=== PATIENT | male | born 1940 | race Caucasian/White ===

== ENCOUNTER 2018-03-04 10:24 | Emergency (ER) | payer MEDICARE, BC ==
[~2018-03-04] VITALS: Ht 175.3 cm; Wt 71.5 kg
[~2018-03-04 10:24] MED LIST: ASPI81 PO; ATOR40TA49 PO; CLAR5TAB PO; PERC5TAB12 PO; PROT40TA PO; TAMS0.4C67 PO; VERA240CR PO
[2018-03-04 10:26] VITALS: BP 143/68; PULSE 83; RESP 16; TEMP 98.1; O2SAT 95
[2018-03-04 11:18] VITALS: BP 117/72; PULSE 79; RESP 16; O2SAT 100
--- NOTE | 2018-03-04 11:19 | PD ---
HPI Chief Complaint: GI Complaint Time Seen by Provider: 11:02 Travel History International Travel<30 days: No Contact w/Intl Traveler<30days: No Traveled to known affect area: No History of Present Illness HPI 77-year-old male complains of abdominal bloating abdominal pain and nausea vomiting. Patient has history of esophageal stricture that required dilatation procedure in the past. Patient has been seen by Dr. Weaver. Patient started having abdominal bloating and epigastric abdominal discomfort for the past 3 days. Patient states that the symptom has been intermittent but more persistent since this morning. Patient states that he vomited this morning. Patient states that he felt much better after he vomited. Patient states that abdominal bloating and aching pain localized throughout the epigastric area and periumbilical area. Patient denies any pain radiation. Patient denies any palpitation nausea diaphoresis. Patient denies any chest pain or shortness of breath. Patient denies any diarrhea. Patient states that he has been constipated. Patient denies history hypertension, diabetes. Patient has history of hyperlipidemia. Patient is a non-smoker. Patient denies family history of heart disease. Patient has a history of CAD status post stent placement, pacer placement and on aspirin daily. PFSH Past Medical History Hx Anticoagulant Therapy: Yes (ASPIRIN) Blood Disorders: No Heart Rhythm Problems: Yes Cancer: No Cardiovascular Problems: Yes (STENT, PACER, LEFT BUNDLE BRANCH BLOCK) High Cholesterol: Yes Coronary Artery Disease: Yes Endocrine: No GERD: Yes Genitourinary: Yes (PROSTATE ENLARGEMENT) Hypertension: Yes Immune Disorder: No Musculoskeletal: No Neurologic: No Psychiatric: No Reproductive: No Respiratory: No Past Surgical History Body Medical Devices: Pacemaker, stent Cardiac Surgery: Yes (Pacemaker) Coronary Stent: Yes Other Surgery: Yes (SKIN CA 2000) Social History Alcohol Use: Yes (Socially) Tobacco Use: No Substance Use: No Allergies-Medications (Allergen,Severity, Reaction): Coded Allergies: No Known Allergies (Verified Adverse Reaction, Unknown, 03/04/18) Reported Meds & Prescriptions Reported Meds & Active Scripts Active Reported Clarinex (Desloratadine) 5 Mg Tab 5 Mg PO DAILY Flomax (Tamsulosin HCl) 0.4 Mg Cap 0.4 Mg PO HS Lipitor (Atorvastatin Calcium) 40 Mg Tab 40 Mg PO HS Verapamil ER 24 HR (Verapamil HCl) 240 Mg Tab 240 Mg PO HS Pantoprazole (Pantoprazole Sodium) 40 Mg Tab 40 Mg PO DAILY Aspirin EC (Aspirin) 81 Mg Tabdr 162 Mg PO DAILY Review of Systems General / Constitutional: No: Fever Eyes: No: Visual changes HENT: No: Headaches Cardiovascular: No: Chest Pain or Discomfort Respiratory: No: Shortness of Breath Gastrointestinal: Positive: Nausea, Vomiting, Abdominal Pain Genitourinary: No: Dysuria Musculoskeletal: No: Pain Skin: No Rash Neurologic: No: Weakness Psychiatric: No: Depression Endocrine: No: Polydipsia Hematologic/Lymphatic: No: Easy Bruising Physical Exam Narrative GENERAL: Well-nourished, well-developed patient. SKIN: Focused skin assessment warm/dry. HEAD: Normocephalic. EYES: No scleral icterus. No injection or drainage. NECK: Supple, trachea midline. No JVD or lymphadenopathy. CARDIOVASCULAR: Regular rate and rhythm without murmurs, gallops, or rubs. RESPIRATORY: Breath sounds equal bilaterally. No accessory muscle use. GASTROINTESTINAL: Abdomen soft, nondistended. Patient has mild tenderness in palpation epigastric and periumbilical area of the abdomen. No rebound tenderness. No mass. MUSCULOSKELETAL: No cyanosis, or edema. BACK: Nontender without obvious deformity. No CVA tenderness. Neurologic exam normal. Data Data Last Documented VS Vital Signs Date Time Temp Pulse Resp B/P (MAP) Pulse Ox O2 Delivery O2 Flow Rate FiO2 03/04/18 11:18 16 100 Room Air 03/04/18 11:18 79 117/72 (87) 03/04/18 10:26 98.1 Orders Orders Electrocardiogram (03/04/18 11:13) Complete Blood Count With Diff (03/04/18 11:13) Comprehensive Metabolic Panel (03/04/18 11:13) Creatine Kinase (Cpk) (03/04/18 11:13) Troponin I (03/04/18 11:13) Prothrombin Time / Inr (Pt) (03/04/18 11:13) Act Partial Throm Time (Ptt) (03/04/18 11:13) Lipase (03/04/18 11:13) Urinalysis - C+S If Indicated (03/04/18 11:13) Chest, Single Ap (03/04/18 11:13) Ct Abd/Pel W Iv Contrast(Rout) (03/04/18 11:13) Iv Access Insert/Monitor (03/04/18 11:13) Ecg Monitoring (03/04/18 11:13) Oximetry (03/04/18 11:13) Sodium Chlor 0.9% 1000 Ml Inj (Ns 1000 M (03/04/18 11:45) Ondansetron Odt (Zofran Odt) (03/04/18 11:45) Iohexol 350 Inj (Omnipaque 350 Inj) (03/04/18 12:31) Labs Laboratory Tests Test 03/04/18 11:30 White Blood Count 9.9 TH/MM3 Red Blood Count 5.01 MIL/MM3 Hemoglobin 15.7 GM/DL Hematocrit 45.3 % Mean Corpuscular Volume 90.4 FL Mean Corpuscular Hemoglobin 31.4 PG Mean Corpuscular Hemoglobin Concent 34.7 % Red Cell Distribution Width 12.8 % Platelet Count 254 TH/MM3 Mean Platelet Volume 7.4 FL Neutrophils (%) (Auto) 79.3 % Lymphocytes (%) (Auto) 6.3 % Monocytes (%) (Auto) 12.8 % Eosinophils (%) (Auto) 1.5 % Basophils (%) (Auto) 0.1 % Neutrophils # (Auto) 7.9 TH/MM3 Lymphocytes # (Auto) 0.6 TH/MM3 Monocytes # (Auto) 1.3 TH/MM3 Eosinophils # (Auto) 0.1 TH/MM3 Basophils # (Auto) 0.0 TH/MM3 CBC Comment DIFF FINAL Differential Comment Prothrombin Time 10.7 SEC Prothromb Time International Ratio 1.1 RATIO Activated Partial Thromboplast Time 26.2 SEC Blood Urea Nitrogen 18 MG/DL Creatinine 0.88 MG/DL Random Glucose 106 MG/DL Total Protein 7.4 GM/DL Albumin 3.5 GM/DL Calcium Level 9.1 MG/DL Alkaline Phosphatase 86 U/L Aspartate Amino Transf (AST/SGOT) 17 U/L Alanine Aminotransferase (ALT/SGPT) 23 U/L Total Bilirubin 1.2 MG/DL Sodium Level 138 MEQ/L Potassium Level 3.9 MEQ/L Chloride Level 104 MEQ/L Carbon Dioxide Level 26.9 MEQ/L Anion Gap 7 MEQ/L Estimat Glomerular Filtration Rate 84 ML/MIN Total Creatine Kinase 35 U/L Troponin I LESS THAN 0.02 NG/ML Lipase 92 U/L MDM Medical Decision Making Medical Screen Exam Complete: Yes Emergency Medical Condition: Yes Interpretation(s) Last Impressions Chest X-Ray 03/04/18 1113 Signed Impressions: CONCLUSION: Minimal prominence of interstitium which may be secondary to underlying chronic interstitial change. This appears unchanged. Abdomen/Pelvis CT 03/04/18 1113 Signed Impressions: CONCLUSION: 1. The proximal small bowel is prominent, the mucosa appearing prominent. This is nonspecific. Enteritis could have this appearance. 2. Mild hiatal hernia. Stomach appears thickened but this may be secondary to lack of distention. 3. The stomach and proximal small bowel can be directly inspected with endosco py. 4. Colonic diverticula particularly in the sigmoid region. 5. Enlargement of the prostate. 6. Hepatic steatosis. 1326 PM. CBC within normal limits. WBC 9.9. 79 neutrophil. CMP within normal limits. Cardiac enzymes are normal. Differential Diagnosis Differential diagnosis including gastritis, PUD, pancreatitis, cholecystitis, colitis, UTI, pyelonephritis, nephrolithiasis, angina, [place], PE, pneumothorax. Narrative Course 77-year-old male with abdominal pain abdominal bloating and nausea vomiting. Normal saline solution 1 25 cc an hour. Zofran 4 mg ODT. Diagnosis Primary Impression: Gastroenteritis Patient Instructions: General Instructions Additional Instructions: Clear fluid today and advance diet as tolerated. Zofran as needed for nausea vomiting. Follow-up with personal physician. Return if persistent problem or worse. Med/Other Pt SpecificInfo: Prescription(s) given Scripts Ondansetron Odt (Zofran Odt) 4 Mg Tab 4 MG SL Q6HR Y for Nausea/Vomiting, #10 TAB 0 Refills Prov: Juan Awad MD 03/04/18 Disposition: 01 DISCHARGE HOME Condition: Stable Juan Awad MD Mar 04, 2018 11:19
[2018-03-04] MEDS ORDERED: TAMS5CAP PO (11:21)
[2018-03-04] MEDS ORDERED: PANT40TA3 PO (11:21)
[2018-03-04] MEDS ORDERED: CLAR5TAB PO (11:21)
[2018-03-04] MEDS ORDERED: VERA1TAB17 PO (11:21)
[2018-03-04] MEDS ORDERED: ASPI81TA23 PO (11:21)
[2018-03-04] MEDS ORDERED: LIPI40TA PO (11:21)
[2018-03-04 11:44] LABS: AUTOMATED NEUTROPHIL # 7.9 TH/MM3 (1.8-7.7); BASOPHIL % 0.1 % (0.0-2.0); EOSINOPHIL # 0.1 TH/MM3 (0-0.4); EOSINOPHIL % 1.5 % (0.0-4.0); HEMATOCRIT 45.3 % (39.0-51.0); HEMOGLOBIN 15.7 GM/DL (13.0-17.0); LYMPH % 6.3 % (9.0-44.0); LYMPHOCYTE # 0.6 TH/MM3 (1.0-4.8); MEAN CELL VOLUME 90.4 FL (80.0-100.0); MEAN CORPUSCULAR HEMOGLOBIN 31.4 PG (27.0-34.0); MEAN CORPUSCULAR HGB CONC 34.7 % (32.0-36.0); MEAN PLATELET VOLUME 7.4 FL (7.0-11.0); MONO % 12.8 % (0.0-8.0); MONOCYTE # 1.3 TH/MM3 (0-0.9); NEUT % 79.3 % (16.0-70.0); PLATELET COUNT 254 TH/MM3 (150-450); RED BLOOD COUNT 5.01 MIL/MM3 (4.50-5.90); RED CELL DISTRIBUTION WIDTH 12.8 % (11.6-17.2); WHITE BLOOD COUNT 9.9 TH/MM3 (4.0-11.0)
[2018-03-04] MEDS ORDERED: SODIUM CHLOR 0.9% 1000 ML INJ 1,000 ML IV SCH (11:45)
[2018-03-04] MEDS ORDERED: ONDANSETRON ODT 4 MG TAB PO ONE (11:45)
[2018-03-04 11:53] LABS: CHLORIDE 104 MEQ/L (98-107); SODIUM (NA) 138 MEQ/L (136-145)
[2018-03-04 11:57] LABS: ALBUMIN 3.5 GM/DL (3.4-5.0); BICARBONATE 26.9 MEQ/L (21.0-32.0); CALCIUM 9.1 MG/DL (8.5-10.1); GLUCOSE,RANDOM 106 MG/DL (74-106); INTERNATIONAL NORMALIZED RATIO 1.1 RATIO; PROTHROMBIN TIME - PATIENT 10.7 SEC (9.8-11.6)
[2018-03-04 11:58] LABS: BLOOD UREA NITROGEN 18 MG/DL (7-18)
[2018-03-04 12:00] LABS: ALT (GPT) 23 U/L (12-78); AST (GOT) 17 U/L (15-37); CREATININE 0.88 MG/DL (0.60-1.30); GLOMERULAR FILTRATION RATE 84 ML/MIN (>89)
[2018-03-04 12:02] LABS: TOTAL BILIRUBIN ADULT 1.2 MG/DL (0.2-1.0); TOTAL PROTEIN 7.4 GM/DL (6.4-8.2)
[2018-03-04 12:03] LABS: ALKALINE PHOSPHATASE 86 U/L (45-117)
[2018-03-04 12:05] LABS: TROPONIN I LESS THAN 0.02 NG/ML (0.02-0.05)
[2018-03-04] MEDS ORDERED: IOHEXOL 350 MG/ML 10 ML VIAL (for RAD DIAG) IVCONTRAST ONE (12:31)
--- NOTE | 2018-03-04 12:31 | RADRPT ---
EXAM DATE: 03/04/2018 11:42 AM EDT AGE/SEX: 77 years / Male INDICATIONS: Epigastric pain, bloating. CLINICAL DATA: This is the patient's initial encounter. Patient reports that signs and symptoms have been present for 3 days and indicates a pain score of 2/10. MEDICAL/SURGICAL HISTORY: Hypercholesterolemia. Gastroesophageal reflux disease. Renal calcul i. Myocardial infarction. Hypertension. Esophageal stricture. Left bundle branch block. Pacemaker. Cardiac stent. COMPARISON: [facility], CT ABDOMEN & PELVIS W/O CONTRAST, 04/07/2016. . FINDINGS: There is a pacemaker seen in the left chest. The heart size is normal. The lungs are free of focal al veolar consolidation. There is minimal prominence of the interstitium. No effusion is seen. CONCLUSION: Minimal prominence of interstitium which may be secondary to underlying chronic interstitial change. This appears unchanged. Electronically signed by: Roman Puckett MD 03/04/2018 12:29 PM EDT
--- NOTE | 2018-03-04 13:01 | RADRPT ---
EXAM DATE: 03/04/2018 12:31 PM EDT AGE/SEX: 77 years / Male INDICATIONS: Mid abdominal pain and bloating. CLINICAL DATA: This is the patient's initial encounter. Patient reports that signs and symptoms have been present for 3 days and indicates a pain score of 4/10. MEDICAL/SURGICAL HISTORY: Cardiovascular disease. Hypertension. Skin cancer. Enlarged prostate . Pacemaker. Coronary artery stent. ORAL CONTRAST: No oral contrast ingested. RADIATION DOSE: 9.73 CTDI (mGy) COMPARISON: No prior exams available for comparison. TECHNIQUE: Multiple contiguous axial images were obtained through the abdomen and pelvis following b olus infusion of 95 ml Omnipaque 350 (iohexol) nonionic water-soluble contrast as a single exam dos e. No oral contrast ingested. Using automated exposure control and adjustment of the mA and/or kV ac cording to patient size, the radiation dose was kept as low as reasonably achievable to obtain optima l diagnostic quality images. FINDINGS: Lower Lungs: The visualized lower lungs are clear. There is a pacing lead seen in the right heart. Liver: There is decreased density seen throughout the liver. There is a calcified granuloma in the william perior aspect of the right lobe of the liver. The gallbladder is unremarkable. Biliary dilatation is not seen. Spleen: Homogeneous density without enlargement. Pancreas: Unremarkable without mass or calcification. Kidneys: Normal in size and shape. No evidence of hydronephrosis. Left renal cysts are seen measurin g up to 2.2 cm. Adrenal Glands: Unremarkable. Aorta: There are atherosclerotic calcifications seen throughout the arterial system. No aneurysm is seen. Bowel/Mesentery: There is a mild hiatal hernia. The stomach appears somewhat thickened but this may be secondary to lack of distention. The proximal small bowel appears prominent. It measures up to 3.5 cm in diameter. The mucosa appears prominent throughout the proximal small bowel. There are scattere d colonic diverticula without significant inflammatory change. The diverticula are most numerous in t he sigmoid region. Abdominal Wall: Intact. Retroperitoneum: No evidence of adenopathy in the retrocrural, para-aortic, or deep pelvic regions. Bladder: Contours are smooth. Reproductive Organs: The prostate is enlarged. Inguinal: The inguinal region is unremarkable without evidence of adenopathy. Bony Structures: There is degenerative change in the lumbar spine. CONCLUSION: 1. The proximal small bowel is prominent, the mucosa appearing prominent. This is nonspecific. Enter itis could have this appearance. 2. Mild hiatal hernia. Stomach appears thickened but this may be secondary to lack of distention. 3. The stomach and proximal small bowel can be directly inspected with endoscopy. 4. Colonic diverticula particularly in the sigmoid region. 5. Enlargement of the prostate. 6. Hepatic steatosis. Electronically signed by: Roman Puckett MD 03/04/2018 1:00 PM EDT
[2018-03-04] MEDS ORDERED: ZOFR4TAB3 SL (13:34)
[2018-03-04 13:58] VITALS: BP 126/71
--- NOTE | 2018-03-04 15:45 | EKG ---
Date Performed: 03/04/2018 Time Performed: 11:22:17 PTAGE: 77 years EKG: Sinus rhythm MARKED LEFT AXIS DEVIATION LEFT BUNDLE BRANCH BLOCK ABNORMAL ECG INTERPRETATION BASED ON A DEFAULT A GE OF 40 YEARS Since the PREVIOUS TRACING , no significant change noted PREVIOUS TRACIN04/07/2016 16.31 DOCTOR: Sury Templeton Interpretating Date/Time 03/04/2018 15:45:30
== END 2018-03-04 14:01 | disposition home or self-care (01) ==
LOC: PHED 10:24
DX: K52.9 Noninfective gastroenteritis and colitis, unspecified (principal); K44.9 Diaphragmatic hernia without obstruction or gangrene; I44.7 Left bundle-branch block, unspecified; R94.31 Abnormal electrocardiogram [ECG] [EKG]; N40.0 Benign prostatic hyperplasia without lower urinary tract symptoms; K76.0 Fatty (change of) liver, not elsewhere classified; E78.5 Hyperlipidemia, unspecified; I25.10 Atherosclerotic heart disease of native coronary artery without angina pectoris; I10 Essential (primary) hypertension
CPT/HCPCS: 71045; 74177; 80053; 82550; 83690; 84484; 85025; 85610; 85730; 93005; 96360; 96361; 99285; J7030; Q9967